=== PATIENT | female | born 1995 | race Caucasian/White ===

== ENCOUNTER 2017-03-13 18:00 | Emergency (ER) | payer SELFPAY ==
[2017-03-13 18:18] VITALS: BP 117/52; PULSE 88; TEMP 98.8; BMI 21.7
--- NOTE | 2017-03-13 19:59 | PDOC ---
History of Present Illness - General Chief Complaint: Abscess Boil Stated Complaint: BREAST PAIN Time Seen by Provider: 03/13/17 19:25 History Source: Patient Exam Limitations: No Limitations - History of Present Illness Initial Comments: 03/13/17 23:28 Pt. is a 21 y/o female with no PHM who presents to the ED c/o "multiple balls under my armpits". She states that they have been there approximately one week and have been getting worse. They are tense and painful. Denies drainage. Denies fevers, chills, nausea, vomiting. Past History - Travel Traveled outside of the country in the last 30 days: No Close contact w/someone who was outside of country & ill: No - Past Medical History Allergies/Adverse Reactions: Allergies Allergy/AdvReac Type Severity Reaction Status Date / Time No Known Allergies Allergy Verified 03/13/17 18:15 Home Medications: Ambulatory Orders Oxycodone HCl/Acetaminophen [Percocet 5-325 mg Tablet] 1 tab PO BID #10 tablet MDD 2 03/13/17 Sulfamethoxazole/Trimethoprim [Bactrim Ds -] 1 tab PO BID #14 tablet 03/13/17 Other medical history: denies. - Immunization History Immunization Up to Date: Yes - Psycho/Social/Smoking Cessation Hx Suicidal Ideation: No Smoking History: Never smoked Hx Alcohol Use: No Drug/Substance Use Hx: No Substance Use Type: None Review of Systems - Review of Systems Able to Perform ROS?: Yes Comments:: 03/13/17 23:31 Is the patient limited Irish proficient: No Constitutional: No: Chills, Fever, Malaise, Weakness Musculoskeletal: Yes: Muscle Pain (both arms and breasts) Integumentary: Yes: Lumps, Pruritus, Other (Pain under both axilla. ) Psychiatric: Yes: Anxiety *Physical Exam - Vital Signs Last Vital Signs Temp Pulse Resp BP Pulse Ox 98.8 F 88 19 117/52 100 03/13/17 18:15 03/13/17 18:15 03/13/17 18:15 03/13/17 18:15 03/13/17 18:15 - Physical Exam Comments: 03/13/17 23:37 GENERAL: [The patient is awake, alert, and fully oriented, in no acute distress. Anxious for possible procedure.] HEAD: [Normal with no signs of trauma.] EYES: [Pupils equal, round and reactive to light, extraocular movements intact, sclera anicteric, conjunctiva clear.] EXTREMITIES: [Normal range of motion, no edema.] NEUROLOGICAL: [Normal speech, normal gait.] PSYCH: [Normal mood, normal affect.] SKIN: Multiple fluctuelent masses under both axilla. Largest on the left measuring [id number]. Second measuring [id number] round. R axilla with [id number] and [id number] absecess. [Warm, Dry, normal turgor,] Procedures - Incision and Drainage I&D Site: Left: Axilla (approximately [id number] in size) Betadine cleansed: Yes Anesthesia: 1% Lidocaine Volume(ml): 10 Blade Size: 11 Attempts: 1 (Pt. refused further treatment after loculations were broken up due to pain) Plain Packing: No Dressing: Yes Progress: 03/13/17 23:33 The area was cleaned and prepped in sterile fashion with betadine. Pt. given 10cc of lidocaine into the L axilla in and around the abscess. Good anesthesia was achieved. A 5 cm incision was made at the base of the axilla. Pt. tolerated the incision and initial drainage. Abscess was then explored for loculations. One loculation was broken up with the forecepts and pt then c/o extreme pain. Had to stop as pt refused further treatment d/t pain. Pt. given 1mg ativan for her anxiety. Refused all packing and refused further I&D of the other 3 abscess she had. Medical Decision Making - Medical Decision Making 03/13/17 23:42 Patient is a 21-year-old female with no past medical history who presents to the [facility] with multiple abscesses under both axilla. Patient is anxious about treatment. Explained to patient with a tile edger that in order for the infections to go away the need to be opened and drained. Patient understands and oral consent was given. Pt. requested that we wait for her sister to come before we start the procedure. Her sister arrived at 22:30. The largest of the abscesses on the left axilla was drained today. However patient did not tolerate the procedure and had to stop long-term through. The abscess was cleansed in sterile fashion opened and pus was expressed. In the middle breaking up loculations patient complained of severe pain and refused any further treatment. Was unable to place packing or flush the abscess due to patient refusal. Told patient that there was a very high likelihood that the infection come back as packing was not placed. Patient states that she understands but she does not want to be touched. Told patient she should follow up in our department in 2 days to have the wounds checked. The wounds were marked with a marking pen as to look for further growth or swelling. Patient was given a referral to see Dr. Palmer, surgery to have the rest of the abscesses removed. Patient wishes to go home at this time. Placed patient on Bactrim and Percocet for pain. Patient understands that she should take the antibiotic as prescribed. Gave patient strict return protocol that if she feels feverish has chills, worsening pain or increased swelling to the armpits should come back immediately. Patient understands all discharge instructions and all questions were answered at this time. *DC/Admit/Observation/Transfer Diagnosis at time of Disposition: Abscess of axilla, left, Abscess of axilla, right - Discharge Dispostion Disposition: HOME Condition at time of disposition: Stable Admit: No - Prescriptions Prescriptions: Sulfamethoxazole/Trimethoprim [Bactrim Ds -] 1 tab PO BID #14 tablet Oxycodone HCl/Acetaminophen [Percocet 5-325 mg Tablet] 1 tab PO BID #10 tablet MDD 2 - Referrals Referrals: Anthony Palmer MD [Staff Physician] - - Patient Instructions Printed Discharge Instructions: DI for Incision and Drainage of a Skin Abscess Additional Instructions: You have multiple abscess of your arm pits. One was drained. It was recommended that you have the others drained, but you refused. The one will keep draining, which should happen. Take the antibiotics as prescribed and take the whole prescription even if you feel better. The only thing that will make the infection go away is if they are drained. You were given the name of a surgeon. Follow up with them as soon as possible. Return to the ED in two days to have the wounds checked. Return to the ED if you develop fevers, chills, nausea, vomiting, worsening pain , or have any other changes in your symptoms. Usted tiene mltiples abscesos de lisa fosas del brazo. Altaf estaba drenado. Se recomend que usted tiene los otros drenados, rashawn se neg. El altaf continuar drenando, que debe suceder. [place] los antibiticos segn lo prescrito y tome la receta entera incluso si usted se siente mejor. La mario cosa que tamiko que la infeccin se vaya es si se drenan. Se le sheila el nombre de un cirujano. Seguir con ellos street pronto rachid sea posible. Regrese al [place] en dos gross para revisar las heridas. Haworth 800mg de ibuprofeno cada 8 horas para el dolor y la inflamacin. Tambin le administraron medicamentos para el dolor. No maneje despus de kori sima medicamento, ya que puede causarle sueo. Haworth sima medicamento para romper el dolor. Vuelva a la DE si usted desarrolla fiebres, escalofros, nuseas, vmitos, empeoramiento del dolor, o tiene otros cambios en lisa sntomas. Print Language: AUSTRIAN
[2017-03-13] MEDS ORDERED: LIDOCAINE HCL 1%, 10 MG/ML (20ML VIAL) ONE (20:21)
[2017-03-13] MEDS ORDERED: LORazepam 0.5 MG TABLET ONE (22:52)
[2017-03-13] MEDS ORDERED: LORazepam 1 MG TABLET PO ONE (23:26)
== END 2017-03-13 23:25 | disposition home or self-care (01) ==
LOC: JERFT 18:00
PROC: 0X950ZZ Drainage of Left Axilla, Open Approach (ICD-10-PCS; principal; 2017-03-13)
DX: L02.412 Cutaneous abscess of left axilla (principal); L02.411 Cutaneous abscess of right axilla
CPT/HCPCS: 87070; 87186; 87205; 99281-25

== ENCOUNTER 2017-03-15 10:54 | Emergency (ER) | payer SELFPAY ==
[2017-03-15 11:05] VITALS: BP 117/72; PULSE 84; TEMP 98.5; BMI 21.7
--- NOTE | 2017-03-15 11:49 | PDOC ---
History of Present Illness - General Chief Complaint: Wound Stated Complaint: PAIN, DISCOMFORT Time Seen by Provider: 03/15/17 11:18 History Source: Patient Exam Limitations: Language Barrier (Primarily norwegian speaking. Weave historical interpreter # [id number]) - History of Present Illness Initial Comments: 03/15/17 12:58 CHIEF COMPLAINT: Bilateral axillary abscesses, hidradenitis HISTORY OF PRESENT ILLNESS: Patient is a 21-year-old female with history of abscesses to bilateral underarms. Patient was seen in the emergency department on 03/13/2017 for abscesses to bilateral underarms, the left axilla was evaluated and I&D was performed patient stopped mid procedure states she could not tolerate the pain was started on antibiotics and told to follow-up with surgery. Patient states that there was a misunderstanding she thought that she if she came to the emergency department today she would see a surgeon and be sedated for further procedure. Patient states that bilateral abscesses are smaller she has been on the Bactrim and taken the pain medication. Timing/Duration: reports: week Severity: Yes: moderate Location: reports: none (bilateral axilla) Past History - Past Medical History Allergies/Adverse Reactions: Allergies Allergy/AdvReac Type Severity Reaction Status Date / Time No Known Allergies Allergy Verified 03/15/17 11:05 Home Medications: Ambulatory Orders Cephalexin [Keflex] 500 mg PO TID #30 capsule 03/15/17 - Immunization History Immunization Up to Date: Yes - Psycho/Social/Smoking Cessation Hx Suicidal Ideation: No Smoking History: Never smoked Information on smoking cessation initiated: No Hx Alcohol Use: No Drug/Substance Use Hx: No Substance Use Type: None Review of Systems - Review of Systems Constitutional: No: Symptoms Reported Respiratory: No: Symptoms reported Cardiac (ROS): No: Symptoms Reported Musculoskeletal: No: Symptoms Reported Integumentary: Yes: Other (palpable lesion to bilateral axilla, right worse then left with lymph nodes bilaterally. Right side is fluctuant with erythema, no induration. Left side where previous attempt is smaller areas palpable and fluctuant) Hematologic/Lymphatic: Yes: Lymph Node Abnormalities All Other Systems: Reviewed and Negative *Physical Exam - Vital Signs Last Vital Signs Temp Pulse Resp BP Pulse Ox 98.5 F 84 18 117/72 100 03/15/17 11:03 03/15/17 11:03 03/15/17 11:03 03/15/17 11:03 03/15/17 11:03 - Physical Exam General Appearance: Yes: Appropriately Dressed Neck: negative: Tender lateral, Tender midline Respiratory/Chest: positive: Lungs Clear, Normal Breath Sounds Cardiovascular: positive: Regular Rhythm, Regular Rate Lymphatic: positive: Adenopathy, Tenderness, Other (bilateral axilla) Musculoskeletal: positive: Normal Inspection Extremity: positive: Normal Capillary Refill, Normal Inspection, Normal Range of Motion. negative: Tender Integumentary: positive: Dry, Erythema, Other (palpable lesion to bilateral axilla, right worse then left with lymph nodes bilaterally. Right side is fluctuant with erythema, no induration. Left side where previous attempt is smaller areas palpable and fluctuant. Bilateral sides with no induration.). 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 Patient was under the assumption that if she came to the emergency department today she would be seen by a surgeon and put under general anesthesia for I&D of abscesses. Explained to patient that only localized anesthesia is used. Patient is refusing I&D at this time states that she will use warm soaks, continue antibiotics because it is improving and we will add Keflex onto the regimen. Patient will call surgery and have I&D performed as outpatient. I explained to patient that if any increased redness swelling or signs of infection patient will need to immediately to return to emergency department, she verbalized understanding will continue to monitor area and follow up as she indicates. 03/15/17 13:18 *DC/Admit/Observation/Transfer Diagnosis at time of Disposition: Abscess of axilla, left, Abscess of axilla, right - Discharge Dispostion Disposition: HOME Condition at time of disposition: Good Admit: No - Prescriptions Prescriptions: Cephalexin [Keflex] 500 mg PO TID #30 capsule - Referrals Referrals: Varsha Han MD [Staff Physician] - - Patient Instructions Printed Discharge Instructions: DI for Skin Abscess Additional Instructions: Warm soaks to the area. Antibiotics as ordered If any increased redness, swelling, fever, or any other concerns return to ER recommend following up on for incision and drainage if symptoms are not improving
== END 2017-03-15 12:07 | disposition home or self-care (01) ==
LOC: JERFT 10:54
DX: L02.412 Cutaneous abscess of left axilla (principal); L02.411 Cutaneous abscess of right axilla
CPT/HCPCS: 99281-25

== ENCOUNTER 2017-08-09 12:49 | Emergency (ER) | payer SELFPAY ==
[2017-08-09 13:15] VITALS: BP 112/84; PULSE 78; TEMP 99.2; BMI 21.1
--- NOTE | 2017-08-09 14:43 | PDOC ---
History of Present Illness - General Chief Complaint: Toothache Stated Complaint: TOOTHACHE Time Seen by Provider: 08/09/17 14:16 History Source: Patient Exam Limitations: No Limitations - History of Present Illness Initial Comments: 08/09/17 14:46 This is a 21-year-old woman without significant past medical history who presents today with toothache for 3 days. Patient denies any fevers, chills, headaches, jaw pain. Patient denies any foul tastes in her mouth. She denies any discharge or drainage. Patient states she is able to eat with a moderate amount of pain. Past History - Past Medical History Allergies/Adverse Reactions: Allergies Allergy/AdvReac Type Severity Reaction Status Date / Time No Known Allergies Allergy Verified 08/09/17 13:12 Home Medications: Ambulatory Orders Penicillin V Potassium [Pen Vee K -] 500 mg PO TID #30 tablet 08/09/17 COPD: No DVT: No - Immunization History Immunization Up to Date: Yes - Suicide/Smoking/Psychosocial Hx Smoking History: Never smoked Have you smoked in the past 12 months: No Information on smoking cessation initiated: No Hx Alcohol Use: No Drug/Substance Use Hx: No Substance Use Type: None Review of Systems - Review of Systems Able to Perform ROS?: Yes Is the patient limited Belizean proficient: No Constitutional: No: Symptoms Reported HEENTM: Yes: See HPI Respiratory: No: Symptoms reported Cardiac (ROS): No: Symptoms Reported ABD/GI: No: Symptoms Reported : No: Symptoms Reported Musculoskeletal: No: Symptoms Reported Integumentary: No: Symptoms Reported Neurological: No: Symptoms reported Endocrine: No: Symptoms Reported *Physical Exam - Vital Signs Last Vital Signs Temp Pulse Resp BP Pulse Ox 99.2 F 78 16 112/84 100 08/09/17 13:12 08/09/17 13:12 08/09/17 13:12 08/09/17 13:12 08/09/17 13:12 - Physical Exam General Appearance: Yes: Appropriately Dressed. No: Apparent Distress HEENT: positive: Normal ENT Inspection, Other (no abscess noted. No discharge or drainage present. No obvious dental caries present. Tender to palpation at bucchal surface of tooth #3.) Neck: positive: Trachea midline, Supple Respiratory/Chest: positive: Lungs Clear, Normal Breath Sounds. negative: Respiratory Distress, Accessory Muscle Use Cardiovascular: positive: Regular Rhythm, Regular Rate Gastrointestinal/Abdominal: positive: Normal Bowel Sounds, Soft. negative: Tender Musculoskeletal: negative: CVA Tenderness Extremity: positive: Normal Inspection Neurologic: positive: Alert, Normal Mood/Affect, Normal Response Medical Decision Making - Medical Decision Making 08/09/17 14:37 A/P: 21yo without PMH with 3 days of pain at tooth #3. No drainage or discharge noted. Percocet 1 tab now Rx PenVK referal to dental clinic *DC/Admit/Observation/Transfer Diagnosis at time of Disposition: Toothache - Discharge Dispostion Disposition: HOME Condition at time of disposition: Stable Admit: No - Prescriptions Prescriptions: Penicillin V Potassium [Pen Vee K -] 500 mg PO TID #30 tablet - Referrals - Patient Instructions Printed Discharge Instructions: DI for Dental Pain Additional Instructions: Take penicillin VK 1 tablet three times a day for 10 days or stopped by a dentist. Take Tylenol or Motrin to help relief pain. Follow manufacturers instructions for dosage. Go to [facility] on [address] [place] [address] for dental evaluation. Return to emergency department for worsening pain, foul taste in her mouth, discharge or drainage from the tooth, or any other concerns. Thank you very much for choosing us to provide your emergent healthcare needs. [place] la tableta de penicilina VK 1 yoanna veces al da joseph 10 gross o la detenga un dentista. [place] Tylenol o Motrin para aliviar el dolor de alivio. Siga las instrucciones del fabricante para la dosificacin. Vaya al [facility] en [address] [place] [address] para dustin evaluaci n dental. Regrese a la heydi de emergencia para empeorar el dolor, el sabor desagradable en la boca, la secrecin o el drenaje del diente, o cualquier otra preocupacin. Muchas xochitl por elegirnos para brindarle lisa necesidades emergentes de atenci n mdica. Print Language: HEBREW - Post Discharge Activity
== END 2017-08-09 14:54 | disposition home or self-care (01) ==
LOC: JERFT 12:49
DX: K08.89 Other specified disorders of teeth and supporting structures (principal)
CPT/HCPCS: 99281-25

== ENCOUNTER 2023-10-08 00:11 | Emergency (ER) | payer OTHER ==
[2023-10-08 00:21] VITALS: BP 105/77; PULSE 107; RESP 20; TEMP 98.4; BMI 25.8
[2023-10-08] MEDS: ACETAMINOPHEN 1000 MG/100 ML BAG IVPB ONE (01:41)
[2023-10-08] MEDS: LACTATED RINGERS SOLUTION 1000 ML INFUS.BAG IV ONE (01:41)
[2023-10-08] MEDS ORDERED: ACETAMINOPHEN INJECTION 100 ML IVPB ONE (01:42)
[2023-10-08 01:59] LABS: BASO % 0.3 % (0-2.0); EOS % 0.5 % (0-4.5); HEMATOCRIT 41.8 % (32.4-45.2); HEMOGLOBIN 14.4 GM/dL (10.7-15.3); LYMPH % 21.4 % (8-40); MCH 32.8 pg (25.7-33.7); MCHC 34.4 g/dl (32.0-36.0); MEAN CELL VOLUME 95.2 fl (80-96); MONO % 4.4 % (3.8-10.2); NEUT % 73.4 % (42.8-82.8); PLATELET COUNT 203 10^3/uL (134-434); RBC 4.39 M/mm3 (3.60-5.2); RDW 13.4 % (11.6-15.6)
[2023-10-08 02:23] LABS: URINE APPEARANCE CLEAR; URINE BILIRUBIN NEGATIVE (NEGATIVE); URINE COLOR YELLOW; URINE GLUCOSE (UA) NEGATIVE (NEGATIVE); URINE KETONE NEGATIVE (NEGATIVE); URINE LEUK ESTERASE NEGATIVE (NEGATIVE); URINE NITRITE NEGATIVE (NEGATIVE); URINE PROTEIN NEGATIVE (NEGATIVE); URINE UROBILINOGEN 0.2 mg/dL (0.2-1.0)
[2023-10-08 04:08] LABS: POTASSIUM 4.3 mmol/L (3.5-5.1)
[2023-10-08 04:10] LABS: CALCIUM 9.4 mg/dL (8.5-10.1)
[2023-10-08 04:11] LABS: ALBUMIN 4.3 g/dl (3.4-5.0); BLOOD UREA NITROGEN 11.3 mg/dL (7-18)
[2023-10-08 04:14] LABS: CREATININE 0.8 mg/dL (0.55-1.3)
[2023-10-08 04:15] LABS: BILIRUBIN,TOTAL 0.3 mg/dL (0.2-1); TOT PROT 8.4 g/dl (6.4-8.2)
== END 2023-10-08 04:33 | disposition home or self-care (01) ==
LOC: JER 00:11
PROC: 3E033NZ Introduction of Analgesics, Hypnotics, Sedatives into Peripheral Vein, Percutaneous Approach (ICD-10-PCS; principal; 2023-10-08)
DX: R55 Syncope and collapse (principal); R51.9 Headache, unspecified; R42 Dizziness and giddiness
CPT/HCPCS: 36415; 80053; 81003; 84703; 85025; 87086; 87186; 93005; 93010; 99284-25; J0131